=== PATIENT | male | born 1945 | race Two or more races ===

== ENCOUNTER 2023-12-26 07:25 | Emergency (ER) | payer OTHER ==
[~2023-12-26] VITALS: Ht 162.6 cm; Wt 76.3 kg
[2023-12-26 09:10] VITALS: BP 133/76; PULSE 77; RESP 12; TEMP 97.9; O2SAT 97
== END 2023-12-26 09:15 | disposition home or self-care (01) ==
LOC: ER 07:25 → EDBD 07:25 → ER 09:15
DX: M79.18 Myalgia, other site (principal); M19.90 Unspecified osteoarthritis, unspecified site; E11.9 Type 2 diabetes mellitus without complications; I10 Essential (primary) hypertension; E78.5 Hyperlipidemia, unspecified; V43.52XA Car driver injured in collision with other type car in traffic accident, initial encounter; Y93.89 Activity, other specified; Y92.89 Other specified places as the place of occurrence of the external cause; Y99.8 Other external cause status
CPT/HCPCS: 71045; 73130; 93005

== ENCOUNTER 2024-01-04 08:20 | Emergency (ER) | payer OTHER ==
[~2024-01-04] VITALS: Ht 162.6 cm; Wt 75.4 kg
[2024-01-04 10:18] VITALS: BP 145/75; PULSE 73; RESP 18; TEMP 98.1; O2SAT 97
== END 2024-01-04 10:24 | disposition home or self-care (01) ==
LOC: ER 08:20
DX: S20.219D Contusion of unspecified front wall of thorax, subsequent encounter (principal); I10 Essential (primary) hypertension; E11.9 Type 2 diabetes mellitus without complications; E78.5 Hyperlipidemia, unspecified; M19.90 Unspecified osteoarthritis, unspecified site; V89.2XXD Person injured in unspecified motor-vehicle accident, traffic, subsequent encounter
CPT/HCPCS: 71250; 93005